=== PATIENT | male | born 1990 | race Caucasian/White ===

== ENCOUNTER 2019-01-26 09:46 | Emergency (ER) | payer BC ==
[~2019-01-26] VITALS: Ht 175.3 cm; Wt 81.2 kg
[~2019-01-26 09:46] MED LIST: NORCO 5-325 TA1 EACH PO; NORFLEX100 MG PO
[2019-01-26] MEDS ORDERED: ZOFRAN4 MG PO (10:58)
[2019-01-26 11:04] VITALS: BP 135/96
== END 2019-01-26 11:05 | disposition home or self-care (01) ==
LOC: M.ERS 09:46
DX: S06.0X0A Concussion without loss of consciousness, initial encounter (principal); W18.39XA Other fall on same level, initial encounter; Y92.89 Other specified places as the place of occurrence of the external cause; Y93.89 Activity, other specified; Y99.8 Other external cause status

== ENCOUNTER 2019-08-19 14:58 | Emergency (ER) | payer BC ==
[~2019-08-19] VITALS: Ht 175.3 cm; Wt 74.8 kg
[~2019-08-19 14:58] MED LIST changes: +ZOFRAN4 MG PO
[2019-08-19] MEDS ORDERED: ATIVAN1 M1 PO (15:32)
[2019-08-19 15:43] VITALS: BP 124/88
== END 2019-08-19 15:44 | disposition home or self-care (01) ==
LOC: M.ERS 14:58
DX: F41.9 Anxiety disorder, unspecified (principal); F32.9 Major depressive disorder, single episode, unspecified; F90.9 Attention-deficit hyperactivity disorder, unspecified type

== ENCOUNTER 2020-01-24 12:46 | Emergency (ER) | payer BC ==
[~2020-01-24] VITALS: Ht 175.3 cm; Wt 77.1 kg
[~2020-01-24 12:46] MED LIST changes: +ATIVAN1 M1 PO
[2020-01-24] MEDS ORDERED: LAMOTRIGINE250 MG PO (13:12)
[2020-01-24] MEDS ORDERED: ADDERALL 20 MG20 MG PO (13:12)
[2020-01-24] MEDS ORDERED: TYLENOL WITH CO1 TA1 PO (13:39)
[2020-01-24 13:40] VITALS: BP 123/87
== END 2020-01-24 13:40 | disposition home or self-care (01) ==
LOC: M.ERS 12:46
DX: S63.91XA Sprain of unspecified part of right wrist and hand, initial encounter (principal); W22.8XXA Striking against or struck by other objects, initial encounter; Y93.89 Activity, other specified; Y92.89 Other specified places as the place of occurrence of the external cause; Y99.8 Other external cause status

== ENCOUNTER 2020-04-07 22:32 | Emergency (ER) | payer BC ==
[~2020-04-07] VITALS: Ht 175.3 cm; Wt 72.6 kg
[~2020-04-07 22:32] MED LIST changes: +ADDERALL 20 MG20 MG PO; +LAMOTRIGINE250 MG PO; +TYLENOL WITH CO1 TA1 PO
[2020-04-07 23:47] VITALS: BP 144/95
== END 2020-04-07 23:47 | disposition left against medical advice (07) ==
LOC: M.ERS 22:32
DX: F32.9 Major depressive disorder, single episode, unspecified (principal); Z76.0 Encounter for issue of repeat prescription